=== PATIENT | female | born 1950 | race Caucasian/White ===

== ENCOUNTER 2018-09-23 11:27 | Outpatient (CLI) | payer OTHER ==
--- NOTE | 2018-09-23 13:45 | RAD ---
PA AND LATERAL VIEWS CHEST: HISTORY: Productive cough. FINDINGS: The heart size is normal. The aorta is tortuous. The lungs are expanded without focal areas of cons olidation, pneumothoraces, or pleural effusions. There are postop changes of metallic hardware in th e lower cervical spine. Postop9 changes are also seen in the right shoulder. IMPRESSION: No radiographic evidence of acute cardiopulmonary process. POS: [facility]
== END 2018-09-23 11:28 | disposition home or self-care (01) ==
LOC: SCSRAD 11:27
PROVIDERS: ATTEND Family Medicine
DX: J40 Bronchitis, not specified as acute or chronic (principal)
CPT/HCPCS: 71046

== ENCOUNTER 2018-09-29 12:20 | Outpatient (CLI) | payer OTHER ==
--- NOTE | 2018-09-29 15:06 | MRI ---
MRI LEFT SHOULDER: 09/29/2018 PROVIDED CLINICAL HISTORY: Left shoulder pain. FINDINGS: There is a full-thickness, essentially full-width tear of the supraspinatus tendon, with retraction t o at least the level of the acromion. Patient motion limits evaluation. The components of the rotat or cuff appear otherwise grossly intact. The longhead biceps tendon appears intact and normally loca atiya. The glenoid labrum and glenohumeral articular cartilage are not optimally evaluated, in the absence o f joint distention and the given motion present. The amount of fluid within the glenohumeral joint a ppears physiologic. There is greater than physiologic subacromial/subdeltoid bursal fluid. Rotator cuff muscular volume appears preserved. Acromioclavicular joint osteoarthrosis is demonstrat ed. No focal concerning regional marrow or muscular signal abnormality is evident. IMPRESSION: 1. Limited study due to patient motion. 2. Full-thickness, essentially full-width retracted supraspinatus tendon tear. 3. Acromioclavicular joint osteoarthrosis. POS: [facility]
== END 2018-09-29 12:21 | disposition home or self-care (01) ==
LOC: BICMRI 12:20
PROVIDERS: ATTEND Orthopaedic Surgery
DX: M75.102 Unspecified rotator cuff tear or rupture of left shoulder, not specified as traumatic (principal); M19.012 Primary osteoarthritis, left shoulder

== ENCOUNTER 2018-10-06 00:21 | Outpatient (CLI) | payer OTHER ==
[2018-10-06 10:16] LABS: Hemoglobin 13.8 g/dL (12.0-16.0); Mean Corpuscular HGB CONC 32.9 g/dL (32.0-36.0); Mean Corpuscular Volume 94.3 fL (78.0-98.0); Mean Platelet Volume 7.2 fL (7.4-10.4); Platelet Count 364 thou/uL (130-400); RBC Distribution Width 11.6 % (11.5-14.5); Red Blood Cell (RBC) Count 4.46 mill/uL (4.20-5.40); White Blood Cell (WBC) Count 7.7 thou/uL (4.8-10.8)
[2018-10-06 10:49] LABS: Anion Gap 12 mmol/L (10-20); BUN (Urea Nitrogen) 14 mg/dL (9.8-20.1); Calc. Creatinine Clearance 0 mL/min (70-130); Calcium 9.9 mg/dL (7.8-10.44); Carbon Dioxide 27 mmol/L (23-31); Chloride 105 mmol/L (98-107); Estimated GFR-MDRD 59; Glucose 91 mg/dL (80-115); Potassium 4.8 mmol/L (3.5-5.1); Sodium 139 mmol/L (136-145)
== END 2018-10-06 00:22 | disposition home or self-care (01) ==
LOC: LABBT 00:21
PROVIDERS: ATTEND Orthopaedic Surgery
DX: Z01.818 Encounter for other preprocedural examination (principal); M75.102 Unspecified rotator cuff tear or rupture of left shoulder, not specified as traumatic
CPT/HCPCS: 80048; 85027; 93005; 93010

== ENCOUNTER 2018-10-11 07:35 | Day surgery (SDC) | payer OTHER ==
[2018-10-06 09:29] VITALS: BMI 20.3
[2018-10-11] MEDS ORDERED: Fentanyl 100 MCG/2 ML VIAL ONE ×2 (08:14→08:57)
[2018-10-11] MEDS ORDERED: Midazolam HCl 2 mg/2 ml Vial ONE (08:14)
[2018-10-11] MEDS ORDERED: Zolpidem Tartrate 5 MG TAB PO PRN (09:15)
[2018-10-11] MEDS ORDERED: Promethazine HCl 25 MG/ML VIAL IM PRN (09:15)
[2018-10-11] MEDS ORDERED: Ropivacaine 0.2% 550 ML 550 ML NERVE BLCK SCH (09:15)
[2018-10-11] MEDS ORDERED: traMADol HCl 50 MG TAB PO PRN ×2 (09:15)
[2018-10-11] MEDS ORDERED: Ondansetron PF 4 MG/2 ML Vial IVP PRN (09:15)
[2018-10-11] MEDS ORDERED: HYDROcodone/Acetaminophen 7.5/325 mg Tablet PO PRN ×2 (09:16→09:17)
[2018-10-11] MEDS ORDERED: Fentanyl 100 MCG/2 ML VIAL SLOW IVP PRN (09:17)
[2018-10-11] MEDS ORDERED: Bupivacaine HCl 0.5%/Epinephrine 1:200,000/PF 30 ml Vial ONE (09:47)
--- NOTE | 2018-10-11 12:01 | OP ---
DATE OF PROCEDURE: 10/11/2018 PREOPERATIVE DIAGNOSES: Left shoulder rotator cuff tear, biceps tendon tear and instability, and AC joint arthritis. POSTOPERATIVE DIAGNOSES: Left shoulder rotator cuff tear, biceps tendon tear and instability, and AC joint arthritis. PROCEDURES PERFORMED: 1. Left shoulder arthroscopy with arthroscopic rotator cuff repair. 2. Open distal clavicle excision. 3. Open biceps tenodesis. FIELD CASE MANAGER: Bill Wilhelm PA-C. BLOOD LOSS: Less than 30. COMPLICATIONS: None. ANESTHESIA: She had a general anesthetic. She also had a preoperative block. IMPLANTS: We used one Titanium triple loaded rotator cuff anchor. We used a BioComposite 4.75 mm SwiveLock for double row repair of the rotator cuff and we used one BioComposite bio-tenodesis screw that was 7 x 23. INDICATIONS: A 68-year-old female, who is very active, has had long-term problems with the shoulder for greater than a year. She has failed therapy. She has failed injection and at this time, she wished to have surgery. DESCRIPTION OF PROCEDURE: After all appropriate consent forms were explained and signed, she was taken to the operative room and at this time, she was given general anesthetic. Once the level of anesthesia was appropriate, she was rolled into the right lateral decubitus position with all bony prominences well padded. Axillary roll was placed beneath the right axilla and a garcia bag was inflated to hold in this position. The arm was then taken through full range of motion and suspended with 10 pounds in standard arthroscopic fashion. The left shoulder and upper extremity were prepped and draped in standard surgical fashion. Bony anatomical landmarks were drawn out and the subacromial space was infiltrated with Marcaine with epinephrine. A posterior portal was established. Scope was placed into the shoulder joint. Anterior working portal was then made using a needle localization technique. Diagnostic arthroscopy commenced in the glenohumeral joint. The articular surface of the glenoid and humeral head were in excellent condition. No loose bodies were noted in the axillary pouch. Subscapularis was intact. There was a large full-thickness tear of the supraspinatus and this did include the portion of the bicipital sling landing stability superiorly. The biceps tendon itself had some intertendinous tearing and the patient also demonstrated a degenerative SLAP tear. At this time, the shaver was introduced to debride our cuff from the undersurface as well as our labrum. We then placed a green cannula anteriorly and through an 18-gauge needle, placed a stitch through the biceps tendon. It was then cut off the superior labrum with the surgical scissors. At this time, we then repositioned our scope into the subacromial space. Lateral working portal was then made and we then removed the bursa from off the underlying cuff. The edge of the cuff tear was noted. It was freshened up with a shaver. All soft tissue was removed off the bony insertion point. There was some scar tissue between the anterior and posterior leaflets. This was debrided and a [id number] suture was placed using the Scorpion device. Once this was done, using the passport cannula laterally and through a small separate stab incision, a triple loaded titanium anchor was placed just off the articular surface. These sutures were then placed through the rotator cuff in mattress fashion using the Scorpion device. These were then tied and all six of the sutures were brought down laterally and placed in a 4.75 SwiveLock for double row repair. This gave us a nice cuff repair. At this time, the AC joint was marked with a needle. The scope was removed. Shoulder was drained. We then used a 15 blade to make an oblique incision across the AC joint down through skin only. Bovie was used to coagulate any brisk venous bleeding. At this time, full-thickness periosteal flaps were taken to expose the distal clavicle. Hohmann retractors were placed. A saw was used to remove approximately 1 cm of the distal clavicle. Edges were smoothed off with a rasp and a small amount of bone wax was placed onto the bleeding cancellous bone. Any remaining meniscal remnant was removed and the joint was thoroughly irrigated and dried. We then used multiple Vicryl to close our periosteal sleeve and 2-0 Vicryl to close our subdermal tissue. We then turned our attention to the biceps tenodesis. Again, a 15 blade was used to incise down through skin. Bovie was used to coagulate any brisk venous bleeding. Deltoid fascia was opened up sharply and finger dissection was used to dissect the deltoid in line with its fibers to get down to the underlying transverse humeral ligament. This was opened up and the biceps tendon brought out into the wound. The tendon was then sutured so that we could remove the intra-articular portion of this. We then placed a pin, reamed with a 7 mm reamer to a depth of 25 and placed our 7 x 23 BioComposite Bio-Tenodesis screw in standard fashion. Sutures were tied over top of this, so that the screw could not back out. Once this was done, we thoroughly irrigated and dried. We then used Vicryl to close our fascia for the deltoid. We then used 2-0 Vicryl and nylon sutures to close this incision as well as our portals. Bulky sterile dressing was applied. The patient was awakened. She was taken to recovery room in stable condition. All counts were correct at the end of the case. She did receive preoperative IV antibiotics. Job ID: [id number] [facility]
[2018-10-11] MEDS ORDERED: Promethazine HCl 25 MG/ML VIAL ONE (12:12)
[2018-10-11] MEDS ORDERED: Ondansetron PF 4 MG/2 ML Vial ONE (12:31)
[2018-10-11] MEDS ORDERED: Ropivacaine 0.2% HCl/PF (40 MG/20 ML VIAL) ONE (14:43)
[2018-10-11] MEDS ORDERED: Ropivacaine 0.5% HCl/PF (150 MG/30 ML VIAL) ONE (14:43)
[2018-10-11] MEDS ORDERED: ePHEDrine 50 MG/ML VIAL ONE (14:49)
[2018-10-11] MEDS ORDERED: PROPOFOL 200 MG/20 ML VIAL ONE (14:49)
[2018-10-11] MEDS ORDERED: Glycopyrrolate 0.2 MG/ML 5 ML SYRINGE ONE (14:49)
[2018-10-11] MEDS ORDERED: PHENYLEPHRINE-NS 100 MCG/ML 10 ML SYRINGE ONE (14:49)
[2018-10-11] MEDS ORDERED: Rocuronium Bromide 10 MG/ML (10ML VIAL) ONE (14:49)
== END 2018-10-11 13:50 | disposition home or self-care (01) ==
LOC: SDC 07:35
PROVIDERS: ATTEND Orthopaedic Surgery
PROC: 0RHK44Z Insertion of Internal Fixation Device into Left Shoulder Joint, Percutaneous Endoscopic Approach (ICD-10-PCS; principal; 2018-10-11)
PROC: 0LQ24ZZ Repair Left Shoulder Tendon, Percutaneous Endoscopic Approach (ICD-10-PCS; principal; 2018-10-11)
PROC: 0LU24JZ Supplement Left Shoulder Tendon with Synthetic Substitute, Percutaneous Endoscopic Approach (ICD-10-PCS; principal; 2018-10-11)
PROC: 0PBB0ZZ Excision of Left Clavicle, Open Approach (ICD-10-PCS; principal; 2018-10-11)
PROC: 0LS40ZZ Reposition Left Upper Arm Tendon, Open Approach (ICD-10-PCS; principal; 2018-10-11)
DX: M75.102 Unspecified rotator cuff tear or rupture of left shoulder, not specified as traumatic (principal); S46.212A Strain of muscle, fascia and tendon of other parts of biceps, left arm, initial encounter; M19.012 Primary osteoarthritis, left shoulder; E78.00 Pure hypercholesterolemia, unspecified; E03.9 Hypothyroidism, unspecified
CPT/HCPCS: A4306; C1713; J0670; J2250; J2405; J2550; J2704; J2795; J3010; J3490

== ENCOUNTER 2019-06-15 15:30 | Outpatient (CLI) | payer OTHER ==
--- NOTE | 2019-06-15 15:53 | ULT ---
THYROID ULTRASOUND: HISTORY: Evaluate for thyroid mass. Previous screening thyroid ultrasound. COMPARISON: None. FINDINGS: Overall the thyroid gland is markedly diminutive. No solid or cystic masses. Thyroid isthmus measures 0.08 cm. Right thyroid lobe measures 0.7 x 2.7 x 0.8 cm. Left thyroid lobe measures 0.5 x 1.7 x 0.3 cm. IMPRESSION: Markedly diminutive gland. No solid or cystic masses. Transcribed Date/Time: 06/15/2019 3:55 PM
== END 2019-06-15 15:31 | disposition home or self-care (01) ==
LOC: SCSULT 15:30
PROVIDERS: ATTEND Family Medicine
DX: E07.9 Disorder of thyroid, unspecified (principal)
CPT/HCPCS: 76536

== ENCOUNTER 2020-06-22 12:35 | Outpatient (CLI) | payer MEDICARE ==
--- NOTE | 2020-06-22 13:44 | CT ---
CT ABDOMEN AND PELVIS WITH IV CONTRAST 06/22/2020 CLINICAL INFORMATION: Diarrhea and left lower quadrant abdominal pain. History of ischemic colitis as well as diverticuliti s. COMPARISON: 08/22/2015. Technique: Multiple contiguous axial CT images are obtained through the abdomen and pelvis with IV contrast. Cor onal reformatted images are provided. FINDINGS: Lower Chest: Minimal bibasilar atelectasis is present. Vessels: Vascular calcifications are seen in the abdominal aorta and iliac arteries. Prior examinatio n obtained in arterial phase of enhancement demonstrated evidence of a replaced hepatic artery. There does appear to be narrowing at the origin of the celiac artery and going appearance of the wyatt ac artery which could be related to arcuate ligament. Abdomen: Portal vein:Patent Gallbladder: Evidence of prior cholecystectomy. Mild intra and extrahepatic biliary ductal dilatation is present likely attributable to reservoir effect. Liver: within normal limits. Spleen: within normal limits. Pancreas: within normal limits. Adrenals: A stable 1.3 cm right adrenal nodule is again present which does demonstrate an attenuation coefficient on this exam suggestive of an adrenal adenoma. Left adrenal gland has a normal CT appearance Kidneys: Left renal cyst is again noted with a nonobstructing 4 mm calculus inferior pole left kidney . Right kidney has a normal CT appearance. Bowel: A few scattered colonic diverticula are seen. The colon is decompressed. There are suggested a reas of colonic wall thickening, but this is likely related to decompressed nature of the colon. There is a metallic density seen near the cecal apex which could be related to a tiny metallic foreig n body versus secondary to prior postoperative change. Appendix: Not visualized. Patient reportedly has history of prior appendectomy. Peritoneum: No ascites or free air; no fluid collection. Mesentery and Retroperitoneum: No enlarged mesenteric or retroperitoneal lymph nodes. Abdominal Wall: within normal limits. Pelvis: Reproductive Organs: Evidence of hysterectomy. Bladder: within normal limits. Bones: Postoperative changes L4-5 level with evidence of posterior fusion hardware in place. Trace an terolisthesis of L3 on L4 is present as well as trace anterolisthesis of L4 on L5. Degenerative changes are seen in the lower lumbar spine with evidence of laminectomy defects at site of postoperat nelson change. IMPRESSION: 1. No acute findings in the abdomen or pelvis. 2. Right adrenal adenoma 3. Left renal cyst and nonobstructing left renal calculus. 4. Postoperative changes related to cholecystectomy and hysterectomy. 5. Colonic diverticulosis without CT evidence of diverticulitis.
[2020-06-22] MEDS ORDERED: Iopamidol-370 76% 500 ML 1 ML ONE (15:19)
== END 2020-06-22 12:36 | disposition home or self-care (01) ==
LOC: BICCT 12:35
PROVIDERS: ATTEND Physician Assistant Medical
DX: R10.32 Left lower quadrant pain (principal); R19.7 Diarrhea, unspecified; D35.01 Benign neoplasm of right adrenal gland; N28.1 Cyst of kidney, acquired; N20.0 Calculus of kidney; Z90.49 Acquired absence of other specified parts of digestive tract; Z90.710 Acquired absence of both cervix and uterus; K57.30 Diverticulosis of large intestine without perforation or abscess without bleeding
CPT/HCPCS: 74177; Q9967